=== PATIENT | female | born 2005 | race Caucasian/White ===

== ENCOUNTER 2024-07-31 14:33 | Observation (INO) ==
[2024-07-31] MEDS ORDERED: IOPAMIDOL 100 ML BOTTLE IV ONE (14:34)
[2024-07-31 15:32] LABS: Basophils # (Auto) 0.05 K/mcL (0.00-0.30); Basophils % (Auto) 0.6 % (0.0-2.0); Eosinophils # (Auto) 0.26 K/mcL (0.00-0.70); Eosinophils % (Auto) 3.2 % (0.0-7.0); Hematocrit 45.6 % (34.1-44.9); Hemoglobin 15.8 g/dL (11.2-15.7); Lymphocytes # (Auto) 3.06 K/mcL (1.50-4.80); Lymphocytes % (Auto) 38.1 % (15.5-49.0); Mean Corpuscular HGB Conc 34.6 g/dL (31.0-36.0); Mean Platelet Volume 9.9 fL (8.8-12.5); Monocytes # (Auto) 0.74 K/mcL (0.10-0.90); Monocytes % (Auto) 9.2 % (1.0-12.0); Neutrophils % (Auto) 48.7 % (38.0-78.0); Platelet Count 293 K/mcL (140-440); RBC 4.85 M/mcL (3.59-5.38)
[2024-07-31] MEDS: LORazepam 2 MG/ML VIAL IV ONE ×2 (15:32→19:44)
[2024-07-31] MEDS: HYDROmorphone 0.5 MG/0.5 ML SYRINGE IV PRN ×2 (15:32→22:02)
[2024-07-31] MEDS: ONDANSETRON 4 MG/2 ML VIAL IV ONE ×2 (15:32→17:23)
[2024-07-31] MEDS: HYDROmorphone 1 MG/ML SYRINGE IV ONE ×2 (15:39→18:43)
[2024-07-31 15:57] LABS: ALT/SGPT 29 U/L (<40); AST/SGOT 53 U/L (<32); Albumin 4.6 gm/dL (3.2-5.2); Albumin/Globulin Ratio 1.9 (1.0-2.3); Alkaline Phosphatase 169 U/L (39-117); Bilirubin,Total 0.6 mg/dL (0.1-1.0); Blood Urea Nitrogen 8 mg/dL (6-20); Calcium 9.9 mg/dL (8.6-10.4); Carbon Dioxide 22 mmol/L (22-30); Chloride 107 mmol/L (96-108); Globulin 2.4 gm/dL (2.2-3.7); Glomerular Filtration Rate 124; Glucose 111 mg/dL (70-105); Potassium 3.7 mmol/L (3.3-5.1); Sodium 146 mmol/L (133-145)
[2024-07-31 16:04] LABS: Appearance,Urine Clear (Clear); Bacteria,Urine 0 /hpf (0); Bilirubin,Urine Negative (Negative); Color,Urine Yellow; Glucose,Urine (UA) Negative (Negative); Ketones,Urine Negative (Negative); Leukocyte Esterase,Urine Negative /uL (Negative); Nitrate,Urine Negative (Negative); Protein,Urine Negative (Negative); Urine Blood Moderate ery/mcL (Negative); Urine RBC 0 /hpf (0-3); Urine Squamous Epithelial Cell 1 /hpf (0-4); Urine WBC 1 /hpf (0-4); Urobilinogen,Urine Normal
[2024-07-31] MEDS: NICOTINE 21 MG PATCH TOPICAL ONE (18:43)
[2024-07-31] MEDS: METOCLOPRAMIDE 10 MG/2 ML VIAL IV ONE (19:30)
[2024-07-31] MEDS: diphenhydrAMINE 50 MG/ML VIAL IV ONE (21:18)
[2024-07-31] MEDS ORDERED: POLYETHYLENE GLYCOL 3350 17 GM PACKET PO PRN (21:52)
[2024-07-31] MEDS ORDERED: ALBUTEROL SULFATE 2.5 MG/3 ML NEBULIZER NEB PRN (21:52)
[2024-07-31] MEDS ORDERED: ACETAMINOPHEN 160 MG/5 ML ORAL.SOL PO PRN (21:52)
[2024-07-31] MEDS: SENNOSIDES 1 TABLET PO SCH (22:02)
[2024-07-31] MEDS: 0.9 % SODIUM CHLORIDE 10 ML SYRINGE IV SCH (22:02)
[2024-07-31] MEDS: KETOROLAC 15 MG/ML VIAL IV PRN (22:02)
[2024-07-31] MEDS: KETOROLAC 30 MG/ML VIAL ONE (22:03)
[2024-07-31] MEDS: ONDANSETRON 4 MG/2 ML VIAL IV PRN (22:03)
[2024-07-31] MEDS: HYDROmorphone 0.5 MG/0.5 ML SYRINGE ONE (22:03)
[2024-07-31] MEDS: ONDANSETRON 4 MG/2 ML VIAL ONE (22:03)
[2024-08-01] MEDS: ACETAMINOPHEN 1,000 MG/100 ML BAG IV ONE (00:53)
[2024-08-01] MEDS: ACETAMINOPHEN 1,000 MG/100 ML BAG IV SCH (00:56)
[2024-08-01] MEDS: oxyCODONE IR 5 MG TABLET PO PRN (00:57)
[2024-08-01] MEDS: PROCHLORPERAZINE 10 MG/2 ML VIAL IV PRN (00:57)
[2024-08-01 07:21] LABS: Basophils # (Auto) 0.03 K/mcL (0.00-0.30); Basophils % (Auto) 0.5 % (0.0-2.0); Eosinophils # (Auto) 0.15 K/mcL (0.00-0.70); Eosinophils % (Auto) 2.5 % (0.0-7.0); Hematocrit 42.7 % (34.1-44.9); Hemoglobin 14.1 g/dL (11.2-15.7); Lymphocytes # (Auto) 2.09 K/mcL (1.50-4.80); Lymphocytes % (Auto) 35.1 % (15.5-49.0); Mean Cell Volume 98.6 fL (80.0-100.0); Mean Platelet Volume 10.3 fL (8.8-12.5); Monocytes # (Auto) 0.49 K/mcL (0.10-0.90); Monocytes % (Auto) 8.2 % (1.0-12.0); Neutrophils % (Auto) 53.5 % (38.0-78.0); Platelet Count 246 K/mcL (140-440); RBC 4.33 M/mcL (3.59-5.38); Red Cell Distribution Width 14.3 % (11.5-14.5)
[2024-08-01 07:25] LABS: Anion Gap 13.9 (8.0-16.0); Blood Urea Nitrogen 8 mg/dL (6-20); Calcium 8.9 mg/dL (8.6-10.4); Carbon Dioxide 23 mmol/L (22-30); Chloride 101 mmol/L (96-108); Glomerular Filtration Rate 136; Glucose 73 mg/dL (70-105); Sodium 138 mmol/L (133-145)
[2024-08-01] MEDS: ENOXAPARIN 40 MG/0.4 ML SYRINGE SQ SCH (09:10)
[2024-08-01 17:36] LABS: Appearance,Urine Cloudy (Clear); Bacteria,Urine Few /hpf (0); Bilirubin,Urine Negative (Negative); Color,Urine Red; Glucose,Urine (UA) Negative (Negative); Ketones,Urine >=160 mg/dL (Negative); Leukocyte Esterase,Urine Negative /uL (Negative); Nitrate,Urine Positive (Negative); PH,Urine 5.5 (5.0-9.0); Protein,Urine >=300 mg/dL (Negative); Specific Gravity,Urine >= 1.030 (1.000-1.035); Urine Blood Large ery/mcL (Negative); Urine RBC > 182 /hpf (0-1); Urine Squamous Epithelial Cell 20 /hpf (0-4); Urine WBC 3 /hpf (0-4); Urobilinogen,Urine Normal
== END 2024-08-02 12:15 | disposition home or self-care (01) ==
LOC: MEDSUR 14:33 → ED 14:33 → MEDSUR 21:20
PROVIDERS: ADMIT Internal Medicine; ATTEND Internal Medicine